=== PATIENT | male | born 1970 | race Caucasian/White ===

== ENCOUNTER 2019-01-20 18:32 | Emergency (ER) | payer OTHER ==
[~2019-01-20] VITALS: Ht 170.2 cm; Wt 73.0 kg
[2019-01-20 18:43] VITALS: BP 117/74
--- NOTE | 2019-01-20 18:55 | NUR ---
PT TO XRAY
== END 2019-01-20 19:45 | disposition home or self-care (01) ==
LOC: ER 18:33
DX: S63.501A Unspecified sprain of right wrist, initial encounter (principal); W23.0XXA Caught, crushed, jammed, or pinched between moving objects, initial encounter; Y93.89 Activity, other specified; Y92.89 Other specified places as the place of occurrence of the external cause; Y99.8 Other external cause status
CPT/HCPCS: 29125; 73140; 99283

== ENCOUNTER 2019-05-15 04:28 | Emergency (ER) | payer SELFPAY ==
[~2019-05-15] VITALS: Ht 177.8 cm; Wt 72.0 kg
[2019-05-15 04:30] VITALS: BP 124/85
[2019-05-15] MEDS ORDERED: ketorolac trometh. 30mg/ml inj. IV ONE (05:05)
[2019-05-15] MEDS ORDERED: proCHLORperazine 10 MG/2 ml inj IV ONE (05:05)
[2019-05-15] MEDS ORDERED: normal saline 1000ml 1,000 ML IV ONE (05:05)
[2019-05-15] MEDS: acetaminophen 325mg tablet PO ONE ×2 (05:17→05:22)
== END 2019-05-15 05:51 | disposition home or self-care (01) ==
LOC: ER 04:28
DX: R51 Headache (principal); R11.0 Nausea; Z90.49 Acquired absence of other specified parts of digestive tract; Z98.890 Other specified postprocedural states
CPT/HCPCS: 96374; 96375; 99283; J0780; J1885; J7030

== ENCOUNTER 2020-12-20 20:53 | Emergency (ER) | payer SELFPAY ==
[~2020-12-20] VITALS: Ht 175.3 cm; Wt 73.3 kg
[2020-12-20] MEDS ORDERED: LIDOcaine Viscous 15ml cup MM ONE (22:15)
[2020-12-20] MEDS ORDERED: mag hydrox/Alum hydrox/simeth 30ml oral suspension PO ONE (22:15)
[2020-12-20] MEDS ORDERED: sucralfate 1 gm tablet PO ONE (22:15)
[2020-12-20 22:46] VITALS: BP 136/90
--- NOTE | 2020-12-20 22:55 | NUR ---
X RAY AT BEDSIDE
[2020-12-20] MEDS ORDERED: PANT40SU2 PO (23:02)
== END 2020-12-20 23:13 | disposition home or self-care (01) ==
LOC: ER 20:54
DX: R13.10 Dysphagia, unspecified (principal); R10.13 Epigastric pain; K21.9 Gastro-esophageal reflux disease without esophagitis; Z90.49 Acquired absence of other specified parts of digestive tract; Z98.890 Other specified postprocedural states; Z88.0 Allergy status to penicillin; Z88.2 Allergy status to sulfonamides
CPT/HCPCS: 71045; 99283

== ENCOUNTER 2022-02-02 12:41 | Emergency (ER) | payer OTHER ==
[~2022-02-02] VITALS: Ht 170.2 cm; Wt 75.0 kg
[~2022-02-02 12:41] MED LIST: PANT40SU2 PO
[2022-02-02 12:55] VITALS: BP 131/90
[2022-02-02 13:14] LABS: BASOPHILS % (AUTO) 0.2 % (0-1); EOSINOPHILS # (AUTO) 0.1 X10'3 (0-0.9); HEMATOCRIT 47.4 % (42.0-52.0); LYMPHOCYTES # (AUTO) 0.8 X10'3 (1.1-4.8); LYMPHOCYTES % (AUTO) 7.4 % (21-51); MEAN CORPUSCULAR HGB CONC 33.8 g/dL (33.0-36.5); MEAN CORPUSCULAR VOLUME 82.7 FL (78-98); MEAN PLATELET VOLUME 7.1 FL (7.4-10.4); MONOCYTES # (AUTO) 0.5 X10'3 (0-0.9); MONOCYTES % (AUTO) 4.8 % (2-12); NEUTROPHILS # (AUTO) 9.8 X10'3 (1.8-7.7); NEUTROPHILS % (AUTO) 86.6 % (42-75); PLATELET COUNT 272 X10'3 (140-440); RED BLOOD COUNT 5.73 X10'6 (4.70-6.10); RED CELL DISTRIBUTION WIDTH 13.5 % (11.5-14.5); WHITE BLOOD COUNT 11.3 X10'3 (4.5-11.0)
[2022-02-02 13:28] LABS: ALANINE AMINOTRANSFERASE 58 U/L (12-78); ALBUMIN 4.2 G/DL (3.4-5.0); ALBUMIN/GLOBULIN RATIO 1.2 (1.1-1.5); ALKALINE PHOSPHATASE 101 IU/L (46-116); ANION GAP 6 (8-16); ASPARTATE AMINO TRANSFERASE 39 U/L (10-37); BLOOD UREA NITROGEN 12 MG/DL (7-18); BUN/CREATININE RATIO 9.9 (5.4-32.0); CALCIUM 9.6 MG/DL (8.5-10.1); CHLORIDE 104 MMOL/L (99-107); CREATININE 1.21 MG/DL (0.60-1.10); GLUCOSE 103 MG/DL (70-104); LIPASE 116 U/L (73-393); POTASSIUM 4.4 MMOL/L (3.5-5.1); SODIUM 139 MMOL/L (135-145); TOTAL CARBON DIOXIDE 29.2 MMOL/L (24-32); TOTAL PROTEIN 7.7 G/DL (6.4-8.2); eGFR 64 ML/MIN
--- NOTE | 2022-02-02 14:24 | NUR ---
PT REPORTING ABD PAIN RADIATING UPWARD AND STATES PAIN FEELS "LIKE ITS IN MY CHEST". EKG ORDERED
[2022-02-02] MEDS ORDERED: ondansetron/PF 4mg/2ml inj IV ONE (14:50)
[2022-02-02] MEDS ORDERED: famotidine/PF 10 mg/ml inj IV ONE (14:50)
[2022-02-02] MEDS ORDERED: loperamide 2mg capsule PO ONE (14:50)
[2022-02-02] MEDS ORDERED: LIDOcaine Viscous 15ml cup MM ONE (14:50)
[2022-02-02] MEDS ORDERED: pantoprazole IV 80 MG in normal saline 100ml IV soln 100 ML IV ONE (14:50)
[2022-02-02] MEDS ORDERED: mag hydrox/Alum hydrox/simeth 30ml oral suspension PO ONE (14:50)
[2022-02-02] MEDS ORDERED: normal saline 1000ml 1,000 ML IV ONE (14:50)
[2022-02-02] MEDS ORDERED: pantoprazole 40MG/NS 100ML BAG 100 ML IV ONE (14:52)
[2022-02-02 15:06] LABS: CLARITY,URINE CLEAR (Clear); COLOR,URINE YELLOW (Yellow); GLUCOSE, URINE NEGATIVE (Neg); KETONES,URINE NEGATIVE (Neg); LEUKOCYTE ESTERASE ,URINE SMALL (Neg); NITRITES, URINE NEGATIVE (Neg); OCCULT BLOOD,URINE NEGATIVE (Neg); PROTEIN,URINE NEGATIVE (Neg); UROBILINOGEN,URINE 0.2 E.U/dL (0.2-1.0)
[2022-02-02 15:15] LABS: UA COLLECTION TYPE NON-SPECIFIED
[2022-02-02 15:16] LABS: MUCUS STRANDS FEW /LPF (Neg); SQUAMOUS EPITHELIAL CELL,UR FEW /LPF (FEW)
[2022-02-02 15:17] LABS: BACTERIA,URINE FEW /HPF (Neg); RBC,URINE 0-2 /HPF (0-2)
[2022-02-02] MEDS ORDERED: proCHLORperazine 10 MG/2 ml inj IV ONE (15:50)
--- NOTE | 2022-02-06 10:09 | NUR ---
Called patient regarding need to be placed on antibiotic, patient requested RX be called in to [facility]. Rx cipro tablet 500 mg PO BID x 7 days total 14 0 refills, to be crushed. Per Dr. Jefe Phillips. Called in prescription and spoke with pharmacist.
== END 2022-02-02 16:33 | disposition home or self-care (01) ==
LOC: ER 12:42
DX: K29.70 Gastritis, unspecified, without bleeding (principal); Z88.2 Allergy status to sulfonamides; Z88.0 Allergy status to penicillin; K21.9 Gastro-esophageal reflux disease without esophagitis; Z90.49 Acquired absence of other specified parts of digestive tract
CPT/HCPCS: 36415; 80053; 81001; 82948; 83690; 84484; 85025; 87077; 87088; 87186; 93005; 96374; 96375; 99284; C9113; J0780; J2405; J3490; J7030